=== PATIENT | female | born 1950 | race Caucasian/White ===

== ENCOUNTER → 2016-11-14 | Outpatient (CLI) | payer MEDICARE ==
[~2016-11-14] VITALS: Ht 170.2 cm; Wt 84.8 kg
[~2016-11-14] MED LIST: ALBI1INJ SQ; ALBI1INJ2 SQ; ALPHTAB PO; COUM5TAB PO; GLIM4TAB PO; INSU1INJ14 SQ; INSULIN HUMAN REGULAR 1,000 UNITS/10 ML VIAL SQ PRN; LACTATED RINGER'S 1000 ML IV SCH; LISI-515 PO; LOVA20TA PO; METOPROLOL TARTRATE 25 MG TAB PO PRN; PROPOFOL 200 MG/20 ML AMP IV ONE; PYRI1TAB5 PO; SODIUM CHLORID 0.9% 500 ML IV SCH; TRIA37.5 PO
[2016-11-14 09:00] VITALS: BP 113/72; PULSE 71; RESP 16; TEMP 97.9; O2SAT 98
[2016-11-14 10:53] VITALS: TEMP 97.7
[2016-11-14 11:18] VITALS: BP 104/65; PULSE 87; RESP 16; O2SAT 97
[2016-11-14 11:22] LABS: INTERNATIONAL NORMALIZED RATIO 1.1 RATIO; PROTHROMBIN TIME - PATIENT 12.5 SEC (9.8-11.6)
== END ==
LOC: HEND 08:32
PROVIDERS: ATTEND Internal Medicine Gastroenterology
DX: K22.2 Esophageal obstruction (principal); K29.50 Unspecified chronic gastritis without bleeding; K44.9 Diaphragmatic hernia without obstruction or gangrene; K20.9 Esophagitis, unspecified; E11.9 Type 2 diabetes mellitus without complications
CPT/HCPCS: 00740; 43239; 43248; 82948; 85610; 88305; 88312; C1769